=== PATIENT | male | born 1960 | race Caucasian/White ===

== ENCOUNTER 2019-06-26 17:53 | Emergency (ER) | payer MEDICARE ==
[~2019-06-26] VITALS: Ht 162.6 cm; Wt 72.7 kg
[~2019-06-26 17:53] MED LIST: NORCO 325 MG-51 TAB PO
[2019-06-26 18:09] VITALS: TEMP 98
[2019-06-26] MEDS ORDERED: ASPIRIN 81M81 MG/TA2 PO (18:20)
[2019-06-26 18:56] LABS: BASO % 0.5 % (0.0-2.0); EOS # 0.4 (0.0-0.7); EOS % 6.1 % (0-4.0); GRAN % 46.8 % (42.2-75.2); HEMATOCRIT 42.5 % (42.0-52.0); HEMOGLOBIN 13.8 g/dl (13.5-18.0); LYMPH # 2.5 (1.2-3.4); LYMPH % 38.7 % (20.0-51.0); MEAN CELL VOLUME 91 fl (80.0-100.0); MEAN CORPUSCULAR HEMOGLOBIN 29 pg (27.0-31.0); MEAN CORPUSCULAR HGB CONC 33 g/dl (33.0-37.0); MEAN PLATELET VOLUME 9.1 fl (7.4-10.4); MONO # 0.5 (0.1-0.6); MONO % 7.6 % (1.7-9.3); PLATELET COUNT 360 K/mm3 (130-400); RED BLOOD COUNT 4.69 M/mm3 (4.20-5.60)
[2019-06-26 19:02] LABS: ALBUMIN 4.5 gm/dL (3.5-5.0); BILIRUBIN,TOTAL 0.4 mg/dL (0.0-1.0); C-REACTIVE PROTEIN 0.6 mg/dL (0.0-0.9); CALCIUM 9.7 mg/dL (8.4-10.2); CREATININE, serum 0.97 (0.66-1.25); POTASSIUM 4.6 mmol/L (3.4-5.0); TOTAL PROTEIN 8.5 gm/dL (6.4-8.2)
[2019-06-26] MEDS ORDERED: NORCO 325 MG-51 TAB PO (20:04)
[2019-06-26 20:23] VITALS: BP 138/88; PULSE 82
== END 2019-06-26 20:24 | disposition home or self-care (01) ==
LOC: COL.ER 17:53
PROVIDERS: Emergency Medicine
DX: K40.30 Unilateral inguinal hernia, with obstruction, without gangrene, not specified as recurrent (principal); N20.0 Calculus of kidney; I25.10 Atherosclerotic heart disease of native coronary artery without angina pectoris; I25.2 Old myocardial infarction; I10 Essential (primary) hypertension; F17.210 Nicotine dependence, cigarettes, uncomplicated; Z95.1 Presence of aortocoronary bypass graft; Z95.5 Presence of coronary angioplasty implant and graft; Z79.82 Long term (current) use of aspirin
CPT/HCPCS: J2060; J2405; J3010; J7030; Q9967

== ENCOUNTER 2019-08-05 09:14 | Day surgery (SDC) | payer MEDICARE ==
--- NOTE | 2019-08-04 15:25 | NUR ---
TRIED CALLING PT TO REVIEW COVID TEST RESULTS, ID SCREENING AND MEDICAL HISTORY QUESTIONS. PT'S VOICEMAIL STATED "CALLING RESTRICTIONS" AND UNABLE TO LEAVE MESSAGE AT [phone]. SAW THAT PT'S COVID TEST WAS PENDING AND OBTAINED AT 1015. CALLED DR DEL ANGEL TO NOTIFY THAT THE PT'S COVID TEST IS PENDING. WAS ENCOURAGED TO CALL NAHUM WITH THEIR CLINIC AT [phone]. SPOKE WITH NAHUM AND SHE STATED THAT THE PT IS A PT OF DR. RAMIREZ AND SHE WILL NEED TO CALL HIM TO SEE IF HE WANTS TO PROCEED WITH THE PT'S PROCEDURE. NAHUM RETURNED MY PHONE CALL AT [address] RAMIREZ WOULD LIKE TO KEEP THE PT ON FOR TOMORROW'S PROCEDURE. INFORMED NAHUM THAT DR DEL ANGEL WILL NEED TO FOLLOW PROTOCOL FOR A PUI PT. FOR EXAMPLE, WEAR AN N95 MASK IF THE TEST IS NOT RESULTED BEFORE THE PROCEDURE. NAHUM AWARE AND WILL LET DR DEL ANGEL KNOW. THIS RN CALLED STUDIO ENGINEER TO MAKE THEM AWARE THAT THE PT MAY STILL BE PENDING PRIOR TO PROCEDURE TIME TOMORROW AND WILL NEED TO BE TREATED A PUI PT. WARREN WITH STUDIO [employer]INEER AWARE.
[2019-08-05] VITALS (12 sets, daily range): BP systolic 109–135; BP diastolic 64–80; PULSE 58–71; TEMP 97.6–98
[~2019-08-05] VITALS: Ht 162.6 cm; Wt 72.2 kg
[~2019-08-05 09:14] MED LIST changes: +ASPIRIN 81M81 MG/TA2 PO
[2019-08-05 09:58] LABS: HEMATOCRIT 38.2 % (42.0-52.0); HEMOGLOBIN 12.6 g/dl (13.5-18.0); MEAN CELL VOLUME 90 fl (80.0-100.0); MEAN CORPUSCULAR HEMOGLOBIN 30 pg (27.0-31.0); MEAN CORPUSCULAR HGB CONC 33 g/dl (33.0-37.0); PLATELET COUNT 299 K/mm3 (130-400); RED BLOOD COUNT 4.23 M/mm3 (4.20-5.60); REDCELL DISTRIBUTION WIDTH-CV 12.9 % (11.5-14.5)
[2019-08-05] MEDS ORDERED: TOPROL XL 25MG25 MG PO (09:59)
[2019-08-05] MEDS ORDERED: CRESTOR 10MG10 MG PO (10:00)
[2019-08-05 10:01] LABS: INR 1.2 (0.8-3.0); PROTHROMBIN TIME 13.7 SECONDS (9.7-12.8)
[2019-08-05 10:03] LABS: PARTIAL THROMBOPLASTIN TIME 34.6 SECONDS (26.0-37.0)
[2019-08-05 10:08] LABS: CALCIUM 9.1 mg/dL (8.4-10.2); CREATININE, serum 0.83 (0.66-1.25); POTASSIUM 3.9 mmol/L (3.4-5.0)
--- NOTE | 2019-08-05 12:11 | NUR ---
SEE MERGE DOCUMENTATION FOR MEDICATION ADMINISTRATION TIMES AND INTRA/POST PROCEDURE SEDATION ASSESSMENTS. HX OF CABG; PLAN FOR LEFT RADIAL ACCESS. BARBEAU TEST TO LEFT HAND SLIGHTLY SLUGGISH, MD NOTIFIED OF THIS AND OK WITH LEFT RADIAL APPROACH.
--- NOTE | 2019-08-05 14:30 | NUR ---
patient arrived to room 356 from [facility] at this time, he is alert/oriented, vital signs stable, left TR band inflated with 16cc air / no signd of bleeding or hematoma noted, has good capillary refill, will continue to monitor
--- NOTE | 2019-08-05 16:22 | NUR ---
continues to do well post-cath, vital signs stable, began deflting TR band with 5cc air
--- NOTE | 2019-08-05 18:33 | NUR ---
TR band deflated, no signs of bleeding or oozing, vital signs stable, denies pain, taking PO intake well, at bedside, denies other needs
--- NOTE | 2019-08-05 19:55 | NUR ---
Pt assessment completed and documented. Pt resting in bed at this time. at bedside. Pt alert and oriented x4. Complaints of pain to his medial chest that is "sharp" and rated 8/10. Stated pain has been occuring "since surgery, except during surgery his arm hurt as well and it does not at this time ". Vitals obtained. Dr. Blackwell notified and gave orders to give SL nitro x1 with PRN tylenol that is already ordered. Also gave orders for PRN morphine if no relief provided by SL nitro and tylenol. Ordered to call if morphine is needed for chest pain unrelieved by tylenol and SL nitro. INT to left ac patent and free of complications. Left wrist site heart cath site with small amount of old drainage noted. Pt denies any other needs at this time. Call light within reach. Will continue to monitor.
[2019-08-06 00:04] VITALS: BP 107/64; PULSE 72; TEMP 98
--- NOTE | 2019-08-06 00:11 | NUR ---
Pt resting in bed at this time. Denies pain. VS obtained. Bandage to left wrist clean, dry, intact. Pt denies any needs at this time. Call light within reach.
--- NOTE | 2019-08-06 02:00 | NUR ---
Resting in bed at this time. No signs of discomforted noted. Call light within reach
[2019-08-06 03:25] VITALS: BP 111/67; PULSE 67; TEMP 97.8
--- NOTE | 2019-08-06 05:32 | NUR ---
Pt rested well throughout the night. Complaints of sharp medial chest pain at the begging of the shift. Dr. Fairchild notified. PRN tylenol and SL nitro given x1 per orders with minimal relief of chest pain. Dr. Fairchild notified again and PRN morphine given per orders with almost complete relief of chest pain. EKG ordered- provider notified of results. INT to left ac without complications. Left radial bandage clean, dry and intact. Pt denies any other needs. Call light within reach.
--- NOTE | 2019-08-06 07:07 | NUR ---
Report given to DORETHA Miguel
[2019-08-06] MEDS ORDERED: PLAVIX 75MG TAB75 MG PO (07:34)
[2019-08-06 07:42] VITALS: BP 120/60; PULSE 64; TEMP 98.1
--- NOTE | 2019-08-06 08:00 | NUR ---
Pt assessment complete. Pt is laying in bed upon entry, Dr. Fairchild at bedside. Pt is A/O x4. His breathing is even and unlabored on RA. Pt denies SOB. No Pain at this time. Site to L forearm is bruised and firm to palpation. POC discussed with patient who verbalizes understanding. No needs at this time. Call light within reach.
--- NOTE | 2019-08-06 09:42 | NUR ---
Discharge paperwork and instructions reviewed with patient. All questions answered at this time. IV to LFA dc'd catheter tip intact. Pt wheeled out at this time.
== END 2019-08-06 09:43 | disposition home or self-care (01) ==
LOC: COL.CAR 09:14 → MEDICAL 16:08 → COL.CAR 08-06 09:43
PROVIDERS: Internal Medicine Cardiovascular Disease
DX: I25.110 Atherosclerotic heart disease of native coronary artery with unstable angina pectoris (principal); T82.855A Stenosis of coronary artery stent, initial encounter; Z79.82 Long term (current) use of aspirin; R94.39 Abnormal result of other cardiovascular function study; Z95.1 Presence of aortocoronary bypass graft; I10 Essential (primary) hypertension
CPT/HCPCS: OP; C1725; C1769; C1887; J1644; J2250; J2270; J3010; Q9967

== ENCOUNTER 2019-08-12 16:05 | Emergency (ER) | payer MEDICARE ==
[~2019-08-12] VITALS: Ht 162.6 cm; Wt 72.3 kg
[~2019-08-12 16:05] MED LIST changes: +CRESTOR 10MG10 MG PO; +PLAVIX 75MG TAB75 MG PO; +TOPROL XL 25MG25 MG PO
[2019-08-12 16:13] VITALS: BP 171/98; TEMP 97.8
[2019-08-12 17:39] LABS: COLLECTION METHOD CLEAN CATCH
[2019-08-12 17:44] LABS: BASO % 0.3 % (0.0-2.0); EOS # 0.3 (0.0-0.7); EOS % 3.2 % (0-4.0); GRAN # 6.2 (1.4-6.5); GRAN % 65.7 % (42.2-75.2); HEMATOCRIT 38.3 % (42.0-52.0); HEMOGLOBIN 12.7 g/dl (13.5-18.0); LYMPH # 2.2 (1.2-3.4); LYMPH % 23.4 % (20.0-51.0); MEAN CELL VOLUME 90 fl (80.0-100.0); MEAN CORPUSCULAR HEMOGLOBIN 30 pg (27.0-31.0); MEAN CORPUSCULAR HGB CONC 33 g/dl (33.0-37.0); MONO # 0.7 (0.1-0.6); MONO % 7.1 % (1.7-9.3); PLATELET COUNT 391 K/mm3 (130-400); RED BLOOD COUNT 4.26 M/mm3 (4.20-5.60); REDCELL DISTRIBUTION WIDTH-CV 12.6 % (11.5-14.5)
[2019-08-12 17:47] LABS: MUCOUS Present /lpf; PH 5 (5-8); SQUAMOUS EPITHELIAL 0-2 /hpf; URINE APPEARANCE Hazy; URINE BACTERIA None Seen /hpf; URINE BILIRUBIN Negative (NEGATIVE); URINE BLOOD 2+ (NEGATIVE); URINE COLOR Yellow; URINE GLUCOSE Negative (NEGATIVE); URINE KETONE Negative (NEGATIVE); URINE LEUKOCYTE ESTERASE Negative (NEGATIVE); URINE NITRATE Negative (NEGATIVE); URINE PROTEIN(semi-quant) Negative (NEGATIVE); URINE RBC >50 /hpf; URINE UROBILINOGEN Negative (NEGATIVE)
[2019-08-12 17:58] LABS: ALANINE AMINOTRANSFERASE 24 U/L (4-49); ALBUMIN 4.1 gm/dL (3.5-5.0); ALKALINE PHOSPHATASE 131 U/L (50-136); ANION GAP 10 mmol/L (7-16); AST,SGOT 36 U/L (15-37); BILIRUBIN,TOTAL 0.3 mg/dL (0.0-1.0); BLOOD UREA NITROGEN 17 mg/dL (9-20); CALCIUM 9.3 mg/dL (8.4-10.2); CARBON DIOXIDE 23 mmol/L (22-30); CHLORIDE 105 mmol/L (98-107); CREATININE, serum 0.85 (0.66-1.25); GLUCOSE 97 mg/dL (74-106); LIPASE 41 U/L (23-300); POTASSIUM 4.1 mmol/L (3.4-5.0); SODIUM 138 mmol/L (137-145); TOTAL PROTEIN 8.2 gm/dL (6.4-8.2)
[2019-08-12 18:12] LABS: TROPONIN-I < 0.012 ng/mL (0.000-0.035)
[2019-08-12] MEDS ORDERED: MIRALAX238G PO (19:19)
[2019-08-12] MEDS ORDERED: NORCO 325 MG-51 TAB PO (19:19)
[2019-08-12 19:21] VITALS: PULSE 69
== END 2019-08-12 19:30 | disposition home or self-care (01) ==
LOC: COL.ER 16:05
PROVIDERS: Emergency Medicine
DX: R10.31 Right lower quadrant pain (principal); R31.9 Hematuria, unspecified; I25.10 Atherosclerotic heart disease of native coronary artery without angina pectoris; F17.210 Nicotine dependence, cigarettes, uncomplicated; Z79.82 Long term (current) use of aspirin; Z79.02 Long term (current) use of antithrombotics/antiplatelets
CPT/HCPCS: J2270; J7030; Q9967

== ENCOUNTER 2019-09-07 10:23 | Day surgery (SDC) | payer MEDICARE ==
[~2019-09-07] VITALS: Ht 162.6 cm; Wt 71.0 kg
[2019-09-07] VITALS (9 sets, daily range): BP systolic 104–148; BP diastolic 67–92; PULSE 6–63; TEMP 97.6–98.7
[~2019-09-07 10:23] MED LIST changes: -ASPIRIN 81M81 MG/TA2 PO; +ASPIRIN E.C. 8181 MG PO; +MIRALAX238G PO
[2019-09-07] MEDS ORDERED: NITROSTAT0.4 MG/TAB SL (11:25)
[2019-09-07] MEDS ORDERED: TRIAMCINOLONE A15 G1 TP (11:25)
--- NOTE | 2019-09-07 11:30 | NUR ---
CPS contacted at this time to come administer pre-op breathing treatment.
--- NOTE | 2019-09-07 11:35 | NUR ---
CPS reports we should not administer pre-op breathing treatment without knowing the Covid-19 status. Anesthesia notified, and they report it is ok to cancel the pre-op breathing treatment.
--- NOTE | 2019-09-07 14:58 | NUR ---
TO RM 7 PER CART FROM OR. DROWSY, BUT TALKING WITH STAFF. STATED HE WAS HUNGRY. DENIES PAIN OR DISCOMFORT. DENIES NAUSEA OR VOMITING. 2 INCISIONS CLEAN DRY INTACT. AGUAYO SET IN PLACE. SCROTAL SUPPORT PLACED BY GINNY FROM OR. IN RM
[2019-09-07] MEDS ORDERED: NORCO 325 MG-51 TAB PO (15:07)
--- NOTE | 2019-09-07 15:15 | NUR ---
SPEACH MORE CLEAR AND PATIENT TALKITIVE WITH . DR ORTEGA INTO TALK WITH PATIENT AND VERBALIZED STARTING BLOOD THINNERS IN TOMORROW.
--- NOTE | 2019-09-07 15:30 | NUR ---
AMBULATED TO BATHROOM WITH 2 ASSIST. VOIDED AND AMBULATED BACK TO BED, SLIGHTLY UNSTEADY.
--- NOTE | 2019-09-07 15:45 | NUR ---
SITTING UP TALKING TO FRIEND. RECEIVED TOAST WITH PEANUT BUTTER/JELLY AND COKE.
--- NOTE | 2019-09-07 16:30 | NUR ---
PATIENT SCOOTED SELF OUT OF BED AND GOT DRESSED. DISCONTINUED IV AND INT RECEIVED DISCHARGE INSTRUCTIONS AND VERBALIZED UNDERSTANDING.
--- NOTE | 2019-09-07 16:46 | NUR ---
DISCHARGED PER WC BY NURSING STAFF TO PRIVATE CAR IN CARE OF FRIEND MUSA.
== END 2019-09-07 16:49 | disposition home or self-care (01) ==
LOC: SDCO 10:23
DX: K40.90 Unilateral inguinal hernia, without obstruction or gangrene, not specified as recurrent (principal); D17.6 Benign lipomatous neoplasm of spermatic cord; I25.2 Old myocardial infarction; I25.10 Atherosclerotic heart disease of native coronary artery without angina pectoris; I10 Essential (primary) hypertension; J44.9 Chronic obstructive pulmonary disease, unspecified; E78.00 Pure hypercholesterolemia, unspecified; I38 Endocarditis, valve unspecified; F17.210 Nicotine dependence, cigarettes, uncomplicated; R20.2 Paresthesia of skin; R12 Heartburn; G89.29 Other chronic pain; Z95.1 Presence of aortocoronary bypass graft; Z95.5 Presence of coronary angioplasty implant and graft; Z79.899 Other long term (current) drug therapy; Z79.01 Long term (current) use of anticoagulants; Z79.82 Long term (current) use of aspirin; Z79.02 Long term (current) use of antithrombotics/antiplatelets
CPT/HCPCS: C1781; J0690; J1885; J2250; J2704; J3010; J7030

== ENCOUNTER → 2020-04-13 | Outpatient (CLI) | payer MEDICARE ==
[~2020-04-13] MED LIST changes: +AMITRIPTYLINE H50 M1 PO; +DOXYCYCLINE 10100 MG PO; +LIPITOR 40MG TA40 MG PO; +NITROSTAT0.4 MG/TAB SL; +PERCOCET 325 MG1 TA2 PO; +TRIAMCINOLONE A15 G1 TP
[2020-04-13 13:05] LABS: TROPONIN-I < 0.012 ng/mL (0.000-0.035)
== END ==
LOC: ZCOL.LAB 12:53
PROVIDERS: Internal Medicine Interventional Cardiology
DX: I20.9 Angina pectoris, unspecified (principal)

== ENCOUNTER 2020-05-02 09:20 | Day surgery (SDC) | payer MEDICARE ==
[~2020-05-02] VITALS: Ht 165.1 cm; Wt 80.0 kg
[2020-05-02] VITALS (252 sets, daily range): BP systolic 114–155; BP diastolic 74–94; PULSE 66–80; TEMP 97.3–98.3; O2SAT 73–100
[~2020-05-02 09:20] MED LIST changes: -AMITRIPTYLINE H50 M1 PO; -DOXYCYCLINE 10100 MG PO; -LIPITOR 40MG TA40 MG PO; -PERCOCET 325 MG1 TA2 PO
[2020-05-02] MEDS ORDERED: AMITRIPTYLINE H50 M1 PO (09:46)
[2020-05-02 10:04] LABS: HEMATOCRIT 39.4 % (42.0-52.0); HEMOGLOBIN 12.8 g/dl (13.5-18.0); MEAN CELL VOLUME 88 fl (80.0-100.0); MEAN CORPUSCULAR HEMOGLOBIN 28 pg (27.0-31.0); MEAN CORPUSCULAR HGB CONC 33 g/dl (33.0-37.0); MEAN PLATELET VOLUME 8.9 fl (7.4-10.4); PLATELET COUNT 314 K/mm3 (130-400); REDCELL DISTRIBUTION WIDTH-CV 13.4 % (11.5-14.5)
[2020-05-02 10:12] LABS: INR 1.3 (0.8-3.0); PROTHROMBIN TIME 14.6 SECONDS (9.7-12.8)
[2020-05-02 10:15] LABS: CALCIUM 8.9 mg/dL (8.4-10.2); CREATININE, serum 0.92 (0.66-1.25); PARTIAL THROMBOPLASTIN TIME 35.6 SECONDS (26.0-37.0); POTASSIUM 3.9 mmol/L (3.4-5.0)
--- NOTE | 2020-05-02 10:55 | NUR ---
SEE MERGE DOCUMENTATION FOR MEDICATION ADMINISTRATION TIMES AND INTRA/POST PROCEDURE SEDATION ASSESSMENTS. PRIOR CABG HX, LEFT SHOULDER WITH LIMITED MOBILITY. PLAN FOR RIGHT FEMORAL ACCESS AT THIS TIME. PT WITH PRIOR INTERVENTIONS TO BILATERAL LEGS; MD AWARE.
--- NOTE | 2020-05-02 12:00 | NUR ---
RECEIVED REPORT FROM DORETHA BEE IN [facility]. AWAITING ARRIVAL OF PT TO ICU 4.
--- NOTE | 2020-05-02 12:19 | NUR ---
PT ARRIVES VIA STRETCHER AND PLACED ON BEDSIDE CONTINUOUS MONTIOR. VSS. CALL LIGHT EDUCATION GIVEN, VERBALIZED UNDERSTANDING. DENIES ANY CP/PRESSURE AT THIS TIME. RT GROIN SITE DRESSING C/D/I AND NO HEMATOMA NOTED. PT VERY SLEEPY AT THIS TIME. JENNIFER POST, GIRLFRIEND, BROUGHT TO BEDSIDE PER PT'S REQUEST. PT ON RA.
--- NOTE | 2020-05-02 13:01 | NUR ---
DR LINDO AT BEDSIDE FOR ASSESSMENT. PT CONTINUES TO DENY ANY CP/PRESSURE.
--- NOTE | 2020-05-02 20:07 | NUR ---
Received report from DORETHA Castillo. All medications verified and all questions answered. Patient had left heart cath procedure during day shift. Flat time up. Right groin insertion site dressing is clean and intact with no drainage present. No hematoma noted around site. No concerns or complaints noted from patient at this time. VSS. Will resume care at this time.
[2020-05-03] VITALS (361 sets, daily range): BP systolic 127–150; BP diastolic 91–95; PULSE 67–70; TEMP 87.7–97.9; O2SAT 78–100
--- NOTE | 2020-05-03 07:10 | NUR ---
RECEIVED REPORT FROM NAN RN. PT SLEEPING. VSS. CALL LIGHT WITHIN REACH.
[2020-05-03] MEDS ORDERED: LIPITOR 40MG TA40 MG PO (08:02)
--- NOTE | 2020-05-03 11:53 | NUR ---
The patient discharged before intake could be completed.
== END 2020-05-03 10:13 | disposition home or self-care (01) ==
LOC: COL.CAR 09:20 → ICU 12:22 → COL.CAR 05-03 10:13
PROVIDERS: Internal Medicine Cardiovascular Disease
DX: T82.855A Stenosis of coronary artery stent, initial encounter (principal); I25.118 Atherosclerotic heart disease of native coronary artery with other forms of angina pectoris; I73.9 Peripheral vascular disease, unspecified; I48.0 Paroxysmal atrial fibrillation; F17.210 Nicotine dependence, cigarettes, uncomplicated; Z20.822 Contact with and (suspected) exposure to COVID-19; Z95.1 Presence of aortocoronary bypass graft; Z98.61 Coronary angioplasty status; Z79.82 Long term (current) use of aspirin; Z79.899 Other long term (current) drug therapy
CPT/HCPCS: OP; C1725; C1760; C1769; C1887; C1894; J1644; J2250; J3010; J7030; Q9967

== ENCOUNTER 2020-06-09 14:42 | Emergency (ER) | payer MEDICARE ==
[~2020-06-09] VITALS: Ht 165.1 cm; Wt 77.3 kg
[~2020-06-09 14:42] MED LIST changes: +AMITRIPTYLINE H50 M1 PO; +LIPITOR 40MG TA40 MG PO
[2020-06-09 15:03] VITALS: BP 153/95; TEMP 98.3
[2020-06-09 15:55] LABS: BASO % 0.5 % (0.0-2.0); EOS # 0.3 (0.0-0.7); EOS % 3.3 % (0-4.0); GRAN # 5.7 (1.4-6.5); GRAN % 69.7 % (42.2-75.2); HEMATOCRIT 42.5 % (42.0-52.0); LYMPH # 1.7 (1.2-3.4); LYMPH % 20.3 % (20.0-51.0); MEAN CELL VOLUME 86 fl (80.0-100.0); MEAN CORPUSCULAR HEMOGLOBIN 28 pg (27.0-31.0); MEAN CORPUSCULAR HGB CONC 33 g/dl (33.0-37.0); MEAN PLATELET VOLUME 9.1 fl (7.4-10.4); MONO # 0.5 (0.1-0.6); PLATELET COUNT 374 K/mm3 (130-400); RED BLOOD COUNT 4.95 M/mm3 (4.20-5.60); REDCELL DISTRIBUTION WIDTH-CV 13.2 % (11.5-14.5)
[2020-06-09 16:04] LABS: ALBUMIN 4.1 gm/dL (3.5-5.0); BILIRUBIN,TOTAL 0.3 mg/dL (0.0-1.0); CALCIUM 9.3 mg/dL (8.4-10.2); CREATININE, serum 0.77 (0.66-1.25); POTASSIUM 3.4 mmol/L (3.4-5.0); TOTAL PROTEIN 8.4 gm/dL (6.4-8.2)
[2020-06-09] MEDS ORDERED: DOXYCYCLINE 10100 MG PO (16:53)
[2020-06-09] MEDS ORDERED: PERCOCET 325 MG1 TA2 PO (16:53)
[2020-06-09 16:58] VITALS: PULSE 89
== END 2020-06-09 17:07 | disposition home or self-care (01) ==
LOC: COL.ER 14:42
PROVIDERS: Physician Assistant
DX: L02.214 Cutaneous abscess of groin (principal); F17.210 Nicotine dependence, cigarettes, uncomplicated; Z86.79 Personal history of other diseases of the circulatory system; Z98.61 Coronary angioplasty status; Z79.82 Long term (current) use of aspirin; Z79.02 Long term (current) use of antithrombotics/antiplatelets